=== PATIENT | female | born 1975 | race Caucasian/White ===

== ENCOUNTER → 2017-03-02 | Outpatient (CLI) | payer OTHER ==
[~2017-03-02] MED LIST: AMARYL2 MG PO; ATORVASTATIN CA40 MG PO; FENOFIBRATE48 MG PO; HUMALOG MI100 UNIT/5 SC; HUMALOG MI100 UNIT/5 SQ; INSULIN SYRING1 EA11 MC; LIPITOR40 MG PO; LOSARTAN POTASS25 MG PO; NOHOMEMEDS; NORCO 5/3251 TABLET PO; NOVOLIN,HU100 UNITS/ SC; NOVOLOG100 UNIT/1 SQ; PERCOCET 5/31 TABLET PO; VENLAFAXINE H37.5 M3 PO
== END | disposition home or self-care (01) ==
LOC: CDC 10:41
DX: O24.319 Unspecified pre-existing diabetes mellitus in pregnancy, unspecified trimester (principal)
CPT/HCPCS: 93000

== ENCOUNTER 2017-08-19 12:54 | Outpatient (CLI) | payer OTHER ==
[~2017-08-19] VITALS: Ht 175.3 cm; Wt 152.1 kg
[2017-08-19 11:57] VITALS: BP 129/60
[2017-08-19 13:38] LABS: ALBUMIN 2.8 g/dL (3.2-4.8); CHLORIDE 107 mEq/L (99-109); POTASSIUM 3.7 mEq/L (3.7-5.4); SODIUM 137 mEq/L (136-147)
[2017-08-19 13:39] LABS: HEMATOCRIT 32.2 % (36.0-46.0); HEMOGLOBIN 11.1 G/DL (11.9-15.5); MCH 30.7 PG (29.0-34.0); MCHC 34.5 G/DL (30.0-36.0); PLATELET COUNT 273 K/uL (156-360); RBC DIS.WIDTH-SD 45.1 % (39-53); RED BLOOD COUNT 3.62 M/uL (3.80-5.20); WHITE BLOOD COUNT 14.2 K/uL (4.1-10.2)
[2017-08-19 13:41] LABS: GLUCOSE 61 mg/dL (70-99); TOTAL PROTEIN 5.9 g/dL (6.4-8.3)
[2017-08-19 13:43] LABS: TOTAL BILIRUBIN 0.2 mg/dL (0.0-1.0)
[2017-08-19 13:44] LABS: ALKALINE PHOSPHATASE 121 IU/L (3-129)
[2017-08-19 13:45] LABS: CREATININE 0.7 mg/dL (0.6-1.3); GFR ESTIMATE (CALCULATED) > 59 mL/min/
[2017-08-19 13:46] LABS: AST (GOT) 10 IU/L (2-34); UREA NITROGEN (BUN) 5 mg/dL (9-23)
[2017-08-19 13:47] LABS: ALT (GPT) 6 IU/L (3-49)
[2017-08-19 13:48] LABS: LIPASE 112 U/L (1.0-51.0)
[2017-08-19 13:51] LABS: TROP-I INTERPRETATION NEGATIVE; TROPONIN-I < 0.01 ng/mL (0.0-0.30)
[2017-08-19 14:10] LABS: APPEARANCE CLOUDY ((CLEAR)); BILIRUBIN NEGATIVE; BLOOD NEGATIVE; COLOR YELLOW ((YELLOW)); GLUCOSE (STRIP) NEGATIVE; KETONES NEGATIVE; LEUKOCYTES SMALL; NITRITE NEGATIVE; PROTEIN (STRIP) 30; SPECIFIC GRAVITY 1.014 (1.000-1.030); UROBILINOGEN 0.2 MG/DL (0.2-1.0)
[2017-08-19 14:21] LABS: BACTERIA 3+ /HPF; CALCIUM OXALATE CRYSTALS 2+ /HPF; EPITHELIAL CELLS 2+ /HPF; HYALINE CASTS 0-5 /LPF; MUCUS 2+ /LPF; UCUL ADDED? YES
[2017-08-19] MEDS ORDERED: PROGESTERONE200 MG PO (16:59)
[2017-08-19] MEDS ORDERED: HUMULIN N100 UNITS/ SC ×2 (16:59)
[2017-08-19] MEDS ORDERED: PRENATAL TABLE1 EAC3 PO (16:59)
[2017-08-19] MEDS ORDERED: HUMALOG100 UNIT/1 SC ×3 (17:00)
[2017-08-19 17:52] LABS: AMYLASE 74 IU/L (1-118)
[2017-08-19 17:57] VITALS: BP 139/96
[2017-08-19 18:54] VITALS: BP 147/75
[2017-08-19 19:48] VITALS: BP 140/63
[2017-08-19 20:40] LABS: BENZODIAZEPINES, URINE SCREEN Negative (200 ng/mL)
[2017-08-19 21:25] VITALS: BP 138/65
[2017-08-19 22:16] LABS: TROP-I INTERPRETATION NEGATIVE; TROPONIN-I < 0.01 ng/mL (0.0-0.30)
[2017-08-19 22:45] VITALS: BP 150/64
[2017-08-20 01:04] VITALS: BP 131/61
[2017-08-20 03:07] VITALS: BP 124/58
[2017-08-20 04:43] LABS: TROP-I INTERPRETATION NEGATIVE; TROPONIN-I 0.01 ng/mL (0.0-0.30)
[2017-08-20 13:00] VITALS: BP 143/44; BP 88/44
[2017-08-20 13:01] VITALS: BP 143/66
[2017-08-20] MEDS ORDERED: DICYCLOMINE HCL10 MG PO (17:46)
[2017-08-20] MEDS ORDERED: NITROFURANTOIN100 M3 PO (17:46)
[2017-08-20] MEDS ORDERED: ONDANSETRON ODT4 MG PO (17:46)
[2017-08-20] MEDS ORDERED: PERCOCET 5/31 TABLET PO (17:49)
[2017-08-20] MEDS ORDERED: PEPCID20 MG PO (17:49)
== END 2017-08-20 19:40 | disposition home or self-care (01) ==
LOC: LDRP-OP 12:54 → EDSTATUS 12:54 → EME 12:54 → 2WEST 17:10 → EDSTATUS 17:10 → 2WEST 17:10 → LDRP-OP 10-26 13:09
PROVIDERS: Hospitalist; Obstetrics & Gynecology
DX: O99.613 Diseases of the digestive system complicating pregnancy, third trimester (principal); R10.13 Epigastric pain; O24.113 Pre-existing type 2 diabetes mellitus, in pregnancy, third trimester; Z3A.34 34 weeks gestation of pregnancy; E11.9 Type 2 diabetes mellitus without complications; R07.9 Chest pain, unspecified; O26.873 Cervical shortening, third trimester; O23.43 Unspecified infection of urinary tract in pregnancy, third trimester; Z79.4 Long term (current) use of insulin; O99.213 Obesity complicating pregnancy, third trimester; E66.01 Morbid (severe) obesity due to excess calories; Z68.42 Body mass index [BMI] 45.0-49.9, adult; Z88.0 Allergy status to penicillin; O99.333 Smoking (tobacco) complicating pregnancy, third trimester; F17.200 Nicotine dependence, unspecified, uncomplicated
CPT/HCPCS: 59025; 76705; 76815; 76818; 80053; 80306 90; 81003; 82150; 82948; 83605; 83690; 84484; 85027; 87086; 93005; 93306; 99281; 99285; G0378; J1170; J1815; J2405; J3010; J7030; J7120; S0028

== ENCOUNTER 2017-09-07 07:02 | Outpatient (CLI) | payer OTHER ==
[~2017-09-07] VITALS: Ht 175.3 cm; Wt 148.3 kg
[~2017-09-07 07:02] MED LIST changes: +DICYCLOMINE HCL10 MG PO; +HUMALOG100 UNIT/1 SC; +HUMULIN N100 UNITS/ SC; +NITROFURANTOIN100 M3 PO; +ONDANSETRON ODT4 MG PO; +PEPCID20 MG PO; +PRENATAL TABLE1 EAC3 PO; +PROGESTERONE200 MG PO
[2017-09-07] MEDS ORDERED: HUMALOG100 UNIT/1 SC ×2 (07:33→07:34)
[2017-09-07] MEDS ORDERED: HUMULIN N100 UNITS/ SC ×3 (07:36→07:37)
[2017-09-07 07:37] VITALS: BP 134/66
== END 2017-09-07 08:25 | disposition home or self-care (01) ==
LOC: LDRP-OP 07:02 → 2WEST 07:03 → LDRP-OP 08:59
PROC: 0UPD7CZ Removal of Extraluminal Device from Uterus and Cervix, Via Natural or Artificial Opening (ICD-10-PCS; principal; 2017-09-07)
DX: O34.33 Maternal care for cervical incompetence, third trimester (principal); Z3A.37 37 weeks gestation of pregnancy
CPT/HCPCS: 59025; G0378

== ENCOUNTER 2017-09-08 14:14 | Outpatient (CLI) | payer OTHER ==
[2017-09-08] VITALS (8 sets, daily range): BP systolic 106–166; BP diastolic 58–83
[~2017-09-08] VITALS: Ht 175.3 cm; Wt 151.5 kg
[2017-09-08 16:03] LABS: BASOPHIL (%) 0.2 % (0-1); EOSINOPHIL (%) 0.1 % (0-5); HEMATOCRIT 37.4 % (36.0-46.0); HEMOGLOBIN 12.6 G/DL (11.9-15.5); IMMATURE GRANULOCYTE (%) 0.8 % (0.0-0.7); LYMPHOCYTE (%) 7.4 % (15-42); LYMPHOCYTE COUNT 1.3 K/uL (1.0-2.8); MCHC 33.7 G/DL (30.0-36.0); MONOCYTE (%) 4.4 % (3-12); MONOCYTE COUNT 0.8 K/uL (0-0.8); NEUTROPHIL (%) 87.1 % (45-76); NEUTROPHIL COUNT 15.8 K/uL (1.8-6.4); PLATELET COUNT 273 K/uL (156-360); RBC DIS.WIDTH-CV 14.1 % (11.8-14.6); RBC DIS.WIDTH-SD 45.7 % (39-53); WHITE BLOOD COUNT 18.1 K/uL (4.1-10.2)
[2017-09-08 16:17] LABS: ALBUMIN 3.2 G/DL (3.2-4.8); CHLORIDE 105 MEQ/L (99-109); POTASSIUM 3.7 MEQ/L (3.7-5.4); SODIUM 138 MEQ/L (136-147); TOTAL BILIRUBIN 0.3 MG/DL (0.0-1.0)
[2017-09-08 16:23] LABS: ALKALINE PHOSPHATASE 129 IU/L (3-129); ALT (GPT) 6 IU/L (3-49); AST (GOT) 9 IU/L (2-34); CREATININE 0.7 MG/DL (0.6-1.3); GFR ESTIMATE (CALCULATED) > 59 mL/min/; GLUCOSE 90 mg/dL (70-99); TOTAL PROTEIN 6.5 G/DL (6.4-8.3); UREA NITROGEN (BUN) 6 mg/dL (9-23)
[2017-09-08 16:39] LABS: UR CREATININE CONCENTRATION 393.9 MG/DL
[2017-09-08 17:06] LABS: GROUP B STREP POSITIVE (NEGATIVE)
[2017-09-08 17:07] LABS: AMYLASE 145 IU/L (1-118)
[2017-09-08 17:13] LABS: LIPASE 509 U/L (1.0-51.0)
== END 2017-09-08 21:35 | disposition short-term general hospital (02) ==
LOC: LDRP-OP 14:14 → 2WEST 14:15 → LDRP-OP 09-25 08:34
PROVIDERS: Advanced Practice Midwife; Obstetrics & Gynecology
DX: O99.613 Diseases of the digestive system complicating pregnancy, third trimester (principal); K85.90 Acute pancreatitis without necrosis or infection, unspecified; O99.283 Endocrine, nutritional and metabolic diseases complicating pregnancy, third trimester; E11.9 Type 2 diabetes mellitus without complications; Z79.4 Long term (current) use of insulin; E78.00 Pure hypercholesterolemia, unspecified; O16.3 Unspecified maternal hypertension, third trimester; O99.213 Obesity complicating pregnancy, third trimester; E66.01 Morbid (severe) obesity due to excess calories; O09.523 Supervision of elderly multigravida, third trimester; O99.333 Smoking (tobacco) complicating pregnancy, third trimester; O34.33 Maternal care for cervical incompetence, third trimester; Z90.49 Acquired absence of other specified parts of digestive tract; Z79.82 Long term (current) use of aspirin; Z88.0 Allergy status to penicillin; Z83.3 Family history of diabetes mellitus; Z82.49 Family history of ischemic heart disease and other diseases of the circulatory system; Z82.3 Family history of stroke; Z81.8 Family history of other mental and behavioral disorders; Z81.1 Family history of alcohol abuse and dependence; Z80.3 Family history of malignant neoplasm of breast; Z82.61 Family history of arthritis; Z83.49 Family history of other endocrine, nutritional and metabolic diseases; Z3A.37 37 weeks gestation of pregnancy
CPT/HCPCS: 59025; 80053; 82150; 82570; 82948; 83690; 84156; 85025; 87081; 87653; G0378; J1170; J2765; J7120; S0028

== ENCOUNTER → 2017-11-26 | Outpatient (CLI) | payer OTHER | END | disposition home or self-care (01) | LOC: CDC 10:19 | DX: Z01.810 Encounter for preprocedural cardiovascular examination (principal) | CPT/HCPCS: 93000 ==

== ENCOUNTER 2018-01-13 06:37 | Day surgery (SDC) | payer OTHER ==
[~2018-01-13] VITALS: Ht 175.3 cm; Wt 140.9 kg
[~2018-01-13 06:37] MED LIST changes: +LYZA0.35 MG PO; +PROZAC20 MG PO
[2018-01-13 08:04] VITALS: BP 135/70
[2018-01-13] MEDS ORDERED: IBUPROFEN800 MG PO (09:45)
[2018-01-13] MEDS ORDERED: PERCOCET 5/31 TABLET PO (09:45)
[2018-01-13 11:34] VITALS: BP 130/58
[2018-01-13 11:50] VITALS: BP 157/70
== END 2018-01-13 12:00 | disposition home or self-care (01) ==
LOC: SDC 06:37
PROVIDERS: Obstetrics & Gynecology
PROC: 0U574ZZ Destruction of Bilateral Fallopian Tubes, Percutaneous Endoscopic Approach (ICD-10-PCS; principal; 2018-01-13)
DX: Z30.2 Encounter for sterilization (principal); E11.9 Type 2 diabetes mellitus without complications; Z79.4 Long term (current) use of insulin; Z88.0 Allergy status to penicillin; F17.200 Nicotine dependence, unspecified, uncomplicated
CPT/HCPCS: 82948; 84702; J0330; J1170; J1885; J2250; J2405; J2710; J2765; J7643; Q0175; S0020